=== PATIENT | male | born 1965 | race Caucasian/White ===

== ENCOUNTER 2018-07-09 09:58 | Day surgery (SDC) | payer OTHER, MEDICAID, SELFPAY ==
--- NOTE | 2018-07-09 | PATH_ITS ---
[facility] Accession Number: [id number] . 01 Material submitted: . PART A: BIOPSY ANTRUM PART B: BIOPSY GE JUNCTION . 02 Diagnosis: A. Stomach, Antrum, Biopsy: Antral mucosa with no diagnostic abnormality. No evidence of Helicobacter on H/E stain. Negative for intestinal metaplasia. Negative for dysplasia and malignancy. . B. Gastroesophageal Junction, Biopsy: Squamous epithelium with incresed intraepithelial eosinophils, (greater than 50 eosinophils per high power field). Please see comment. Negative for dysplasia and malignancy. L/07/15/2018 . 02 Comment: B. In the proper clinical setting, the histopathologic appearance would support a clinical impression of eosinophilic esophagitis. The differential diagnosis also includes drug reaction, gastroesophageal reflux, and food allergies. . 02 Electronically signed: . Elizabet Avelar MD, Pathologist NPI- [id number] . 01 Gross description: . Part A: BIOPSY ANTRUM: Received in formalin are 3 fragment(s) of cadena, soft tissue measuring 0.3 x 0.2 x 0.2 cm to 0.2 x 0.2 x 0.2 cm submitted entirely in 1 cassette(s) Part B: BIOPSY GE JUNCTION: Received in formalin are multiple fragment(s) of cadena, soft tissue measuring 0.8 x 0.3 x 0.2 cm in aggregate submitted entirely in 1 cassette(s) /CKI /CKI . 02 Pathologist provided ICD-10: K20.0 . 02 CPT . 175055, 331726, [id number] Performed at: 01 [facility] [address] [place] [address] Suite [facility], [place], [place] [id number] MD Bruno Bryant MD Phone: [phone] Performed at: 02 [facility] [place] [address] [place] [id number] MD Vivek Nelson MD Phone: [phone]
[2018-07-09 10:37] VITALS: BP 125/82; PULSE 64; RESP 16; TEMP 36.6; O2SAT 98; BMI 24.4
[2018-07-09] MEDS: SODIUM CHLORIDE 0.9% 1,000 ML 200 ML IV (10:44)
--- NOTE | 2018-07-09 11:26 | PM.HP.1 ---
History of Present Illness Date Patient Seen: 07/09/18 Time Patient Seen: 11:27 Chief complaint: [id number] Narrative: Patient is a gentleman has been having dysphagia. He has been to the emergency room twice for food sticking. He has that much of a problem if he eats chooses food well. Patient History Medical History Heartburn symptom (Chronic) Surgical History History of tonsillectomy (Resolved) Family & Social History Family History: Reviewed 07/09/18 by Denis Silva MD Social History: Smokes daily household members spouse Meds Home Medications Medication Instructions Recorded Confirmed Type No Known Home Medications 07/09/18 07/09/18 History Allergies Allergy/AdvReac Type Severity Reaction Status Date / Time No Known Drug Allergies Allergy Verified 07/09/18 10:36 Review of Systems Review of Systems All systems reviewed & are unremarkable except as noted in HPI and below Exam Vital Signs (past 8 hours): - 07/09/18 10:37 Temperature 97.9 F Pulse Rate 64 Respiratory Rate 16 Blood Pressure 125/82 H Pulse Oximetry 98 Oxygen Delivery Method Room Air Narrative Exam Narrative: Operative no apparent distress. Lungs are clear to auscultation. No rales or rhonchi. Heart regular rate and rhythm without murmur gallop. Abdomen is scaphoid soft nontender without mass. Liver and spleen are not enlarged. Patient is alert and oriented x3. Assessment & Plan (1) Dysphagia: Current visit: Yes Status: Acute Plan: Assessment/Plan Narrative: Will proceed EGD. Patient did have coffee with honey several hours ago. Should be able to proceed. I discussed with him risks of bleeding, perforation which would necessitate a major operation possibly or other procedure like stenting, aspiration, the possibility of dilating him. I also talked to him about biopsies. All questions were answered. Wishes to proceed.
--- NOTE | 2018-07-09 11:31 | PM.PREOP ---
Pre-operative Note Interval Note Pre-op Check: Yes History & Physical exam performed today by Physician Changes: No ASA Class (for procedural sedation): I
[2018-07-09] MEDS: LIDOCAINE 4% SOLN 50 ML 20 ML TOP (11:33)
[2018-07-09] MEDS: TETRACAINE/BENZOCAINE/BUTAMBEN (CETACAINE) BOTTLE 1 SPRAY TOP (11:34)
[2018-07-09] MEDS: MIDAZOLAM 5 MG/5 ML VIAL IV (11:46)
[2018-07-09] MEDS: fentaNYL 250 MCG/5 ML INJ IV (11:46)
--- NOTE | 2018-07-09 11:49 | PM.OP.ENDO ---
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 Tiny superficial duodenal ulcer. Duodenitis. Mild.) Procedure & Clinicians Study performed: EGD with cold biopsy. Through the scope balloon dilatation. Same procedure as scheduled: Yes Indications: Dysphagia Surgeon: Denis Silva Procedure Notes SCOAP/Timeout: Performed Procedure in detail: The patient had topical anesthetic applied to oropharynx. She was placed in left lateral decubitus position and underwent IV sedation directed by the surgeon consisting of fentanyl and Versed. A bite block was inserted and the scope was advanced through it into the esophagus. The esophagus was unremarkable. GE junction was noted at 40 cm from the incisors. There was narrowing at this level. There appeared to be small hiatal hernia.. The stomach insufflated well. There were no lesions seen in the body, antrum or at the incisura. The pyloric channel was patent.. The duodenum was remarkable for a superficial small ulcer in the distal bulb and inflammation of the duodenal bulb. The 2nd 3rd and 4th parts of the duodenum were normal.. The scope was brought back into the stomach and retroflexed. There appeared to be very small hiatal hernia. There was also an unusual fold across the cardia that appeared to represent a scar. There was no inflammation. It did not cause any specific defect. The proximal stomach[was otherwise unremarkable]. The scope was straightened and biopsies were taken randomly the antrum to rule out H pylori. The scope was then brought out through the esophagus again. Biopsies were taken in the region of the stricture. The stricture was then dilated sequentially 12, 13.5 and 15 mm diameter using a balloon passed through the scope.. The scope was removed and the patient tolerated the procedure well. Scope withdrawal time: Not applicable Sedation minutes: 14 Findings: duodenal ulcer (With duodenitis) and stricture (Distal esophageal) Specimen(s): other (Biopsies of the GE junction and the antrum) Complications: none Recommendations: Continue medication(s) (But double the dose of proton pump inhibitor) Follow up: as needed (By phone and with your primary care doctor) Disposition: PACU
[2018-07-09 11:53] VITALS: BP 115/82; PULSE 66; RESP 17; O2SAT 93
[2018-07-09 11:58] VITALS: BP 109/77; PULSE 64; RESP 17; O2SAT 92
[2018-07-09 12:03] VITALS: BP 110/81; PULSE 66; RESP 20; O2SAT 93
[2018-07-09 12:20] VITALS: BP 110/74; PULSE 60; RESP 16; TEMP 36.6; O2SAT 97
[2018-07-09] MEDS: PANTOPRAZOLE 40 MG TABLET PO ×2 (12:40)
[2018-07-09 12:45] VITALS: BP 111/77; PULSE 60; RESP 15; TEMP 36.2; O2SAT 97
== END 2018-07-09 13:00 | disposition home or self-care (01) ==
PROVIDERS: Visit Provider Specialist
PROC: 0DJ08ZZ Inspection of Upper Intestinal Tract, Via Natural or Artificial Opening Endoscopic (ICD-10-PCS; CPT 43235; principal; 2018-07-09 11:45)
DX: K20.0 Eosinophilic esophagitis (principal); K22.2 Esophageal obstruction; K26.9 Duodenal ulcer, unspecified as acute or chronic, without hemorrhage or perforation; K29.80 Duodenitis without bleeding
CPT/HCPCS: 43249; 43239; 88305; 88342; 99152; J2250; J3010